=== PATIENT | male | born 1980 | race Caucasian/White ===

== ENCOUNTER 2020-03-30 08:54 | Emergency (ER) | payer OTHER ==
[~2020-03-30] VITALS: Ht 157.2 cm; Wt 61.3 kg
--- NOTE | 2020-03-30 09:20 | ED General ---
General Chief Complaint: General Problems/Pain Stated Complaint: R ARM DOWN TO SHOULDER BLADE PAIN Source of Information: Patient Exam Limitations: No Limitations History of Present Illness Date Seen by Provider: Mar 30, 2020 Time Seen by Provider: 09:15 Initial Comments Patient is a 39-year-old male who presents to the emergency room with a chief complaint of right-sided shoulder pain. Patient states the pain is located just underneath the right scapula. He states he had onset of pain last night and woke up in the middle the night with the worst pain he is ever had in the shoulder blade. Patient states it hurts more to move the arm forward and with any other range of motion. Patient has been orienting for working on [employer] in [facility] recently and he was hanging Erika lights at his home yesterday. Patient denies any direct trauma. He has never had pain like this before. He denies any other symptoms of shortness of breath or chest pain. Denies any numbness tingling or weakness to the right upper extremity. He is right-hand dominant. All other review of systems reviewed and negative except as stated above. Timing/Duration: 12-24 Hours Severity: Severe Modifying Factors: worse with Movement; improves with Rest Associated Systoms: No Chest Pain, No Nausea/Vomiting, No Shortness of Air Allergies and Home Medications Patient Home Medication List Home Medication List Reviewed: Yes Review of Systems Review of Systems Constitutional: see HPI EENTM: no symptoms reported Respiratory: no symptoms reported Cardiovascular: no symptoms reported Gastrointestinal: no symptoms reported Genitourinary: no symptoms reported Musculoskeletal: joint pain, muscle pain; No neck pain Skin: no symptoms reported Past Optualz-Vvswph-Mjqzzi Hx Patient Social History Recent Foreign Travel: No Contact w/Someone Who Travel: No Physical Exam Vital Signs Capillary Refill : Height, Weight, BMI Height: '" Weight: lbs. oz. kg; BMI Method: General Appearance: No Apparent Distress, WD/WN Neck: Full Range of Motion, Normal Inspection, Non Tender Respiratory: Lungs Clear, Normal Breath Sounds, No Accessory Muscle Use, No Respiratory Distress Cardiovascular: Regular Rate, Rhythm, Normal Peripheral Pulses Back: Normal Inspection, No CVA Tenderness, No Vertebral Tenderness Extremity: Normal Capillary Refill, Normal Inspection, Normal Range of Motion, Other (Patient has tenderness to palpation along the medial edge of the right scapula. He has discomfort with range of motion of the right shoulder especially forward flexion. Neurovascularly intact to the right upper extremity in all range of motion) Neurologic/Psychiatric: Alert, Oriented x3, No Motor/Sensory Deficits, Normal Mood/Affect, roving carrier II-XII Norm as Tested Skin: Normal Color, Warm/Dry Progress/Results/Core Measures Suspected Sepsis SIRS Temperature: Pulse: Respiratory Rate: Blood Pressure / Mean: Results/Orders Vital Signs/I&O Capillary Refill : Less Than 3 Seconds Progress Note : Time: 09:26 Progress Note 39-year-old male presents to the emergency room with a chief complaint of right shoulder pain, onset within the last 12 hours. This appears to be m usculoskeletal in origin based upon physical exam findings. Patient will be treated with some IM Toradol and Norflex here in the emergency department. He is recommended conservative treatment including NSAIDs, alternating heat and ice therapy. The patient verbalized understanding and is comfortable with the plan of care. All questions are sought and answered and he is stable for discharge. Departure Impression Primary Impression: Pain of right scapula Disposition: 01 HOME, SELF-CARE Condition: Stable Departure-Patient Inst. Decision time for Depature: 09:28 Referrals: NO,LOCAL PHYSICIAN (PCP/Family) Primary Care Physician Patient Instructions: Muscle and Bone Pain (DC) Add. Discharge Instructions: Use [id number] generic Aleve/naproxen sodium as directed on the bottle for pain. Alternate heat and ice packs to the sore areas of your right shoulder. Rest for 24 hours. Return to the emergency department for reevaluation if you have worsening pain especially associated with chest pain, shortness of breath, nausea /vomiting or any other emergent concerning symptoms. All discharge instructions reviewed with patient and/or family. Voiced understanding. BRADEN LUQUE MD Mar 30, 2020 09:20
[2020-03-30] MEDS ORDERED: ORPHENADRINE 60 MG/2 ML (NORFLEX) AMP (ED ONLY) IM ONE (09:30)
[2020-03-30] MEDS ORDERED: KETOROLAC 30 MG/ML VIAL IM ONE (09:30)
[2020-03-30 09:51] VITALS: BP 128/98
== END 2020-03-30 09:51 | disposition home or self-care (01) ==
LOC: ER 08:59
DX: M25.511 Pain in right shoulder (principal)
CPT/HCPCS: 99284